=== PATIENT | female | born 2005 | race Caucasian/White ===

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

== ENCOUNTER 2025-01-06 12:42 | Outpatient (CLI) | payer OTHER, SELFPAY ==
--- NOTE | 2025-01-06 13:00 | CRLHL7_ITS ---
For Patients: As a result of the Century Cures Act, medical imaging exams and procedure reports are released immediately into your electronic medical record. You may view this report before your referring provider. If you have questions, please contact your health care provider. INDICATION: Velamentous cord insertion TECHNIQUE: Ultrasound OB pelvis transabdominal. Real-time noguera-scale imaging of the fetus was performed with color Doppler and spectral Doppler analysis of the umbilical artery without stress testing. COMPARISON: 12/30/2024 FINDINGS: Sonographic imaging demonstrates a single living intrauterine gestation. Fetus demonstrates a regular cardiac rate of 134 beats per minute. Fetus has a cephalic orientation. The placenta lies anterior. Amniotic fluid volume appears normal with a MVP of 2.5 cm. breathing movements, motion, and tone were all observed. IMPRESSION: Single viable intrauterine with a biophysical profile 06/19. Dictated by Tex Tomas MD @ 01/06/2025 3:55:13 PM (Electronically Signed)
== END 2025-01-06 12:43 | disposition home or self-care (01) ==
LOC: US 12:43
PROVIDERS: Visit Provider Obstetrics & Gynecology
DX: O43.123 Velamentous insertion of umbilical cord, third trimester (principal); Z3A.38 38 weeks gestation of pregnancy
CPT/HCPCS: 76819

== ENCOUNTER 2025-01-08 08:30 | Outpatient (RCR) | payer OTHER, SELFPAY ==
--- NOTE | 2024-12-16 13:25 | URNOTE ---
Request received for authorization for Rocael ([id number]). Prior authorization is not required per [facility] . Martha Mauricio Ref#[id number].
[2024-12-18 08:06] VITALS: BP 106/69; PULSE 102; RESP 17; TEMP 36.7; O2SAT 98
[2024-12-18] MEDS: IRON SUCROSE COMPLEX 200 MG in 0.9 % SODIUM CHLORIDE 100 ml 100 ML 330 MG IVPB (08:31)
[2024-12-18] MEDS: 0.9 % SODIUM CHLORIDE 500 ML IV (08:54)
[2024-12-18 08:55] VITALS: BP 103/76; PULSE 100; RESP 16; TEMP 36.9; O2SAT 98
[2024-12-18] MEDS: SODIUM CHLORIDE 0.9 % (FLUSH) 10 ML SYRINGE IVF (08:55)
[2024-12-18 09:26] VITALS: BP 103/67; PULSE 101; RESP 16; TEMP 36.9; O2SAT 98
--- NOTE | 2024-12-31 15:55 | ONC.NURNOTE ---
Diagnosis: MALKA in
[2025-01-02 09:14] VITALS: BP 107/69; PULSE 100; RESP 16; TEMP 36.9; O2SAT 98
[2025-01-02] MEDS: SODIUM CHLORIDE 0.9 % (FLUSH) 10 ML SYRINGE IVF (09:53)
[2025-01-02] MEDS: IRON SUCROSE COMPLEX 200 MG in 0.9 % SODIUM CHLORIDE 100 ml 100 ML 440 MG IVPB (09:54)
[2025-01-02 10:50] VITALS: BP 103/65; PULSE 97; RESP 16; O2SAT 97
[2025-01-06 14:10] VITALS: BP 107/70; PULSE 117; RESP 16; TEMP 36.7; O2SAT 97
[2025-01-06 14:15] VITALS: PULSE 102
[2025-01-06] MEDS: IRON SUCROSE COMPLEX 200 MG in 0.9 % SODIUM CHLORIDE 100 ml 100 ML 440 MG IVPB (14:31)
[2025-01-06] MEDS: SODIUM CHLORIDE 0.9 % (FLUSH) 10 ML SYRINGE IVF (14:31)
[2025-01-06 14:51] VITALS: BP 104/67; PULSE 105; RESP 16; TEMP 37.1; O2SAT 98
[2025-01-06 15:20] VITALS: BP 121/69; PULSE 101; RESP 16; TEMP 36.8; O2SAT 100
[2025-01-08 08:36] VITALS: BP 108/69; PULSE 107; RESP 16; TEMP 36.1; O2SAT 98
[2025-01-08] MEDS: SODIUM CHLORIDE 0.9 % (FLUSH) 10 ML SYRINGE IVF (08:54)
[2025-01-08] MEDS: IRON SUCROSE COMPLEX 200 MG in 0.9 % SODIUM CHLORIDE 100 ml 100 ML 440 MG IVPB (08:59)
[2025-01-08 09:18] VITALS: BP 111/73; PULSE 111; O2SAT 98
[2025-01-08 09:51] VITALS: BP 102/65; PULSE 110; RESP 16; TEMP 36.8; O2SAT 97
== END 2025-06-16 23:59 | disposition home or self-care (01) ==
LOC: CCIC 08:30
PROVIDERS: PCP Obstetrics & Gynecology; Visit Provider Clinical Nurse Specialist
DX: O99.013 Anemia complicating pregnancy, third trimester (principal); D50.9 Iron deficiency anemia, unspecified
CPT/HCPCS: 96365; J1756; J7030; J7050

== ENCOUNTER 2025-01-15 07:06 | Inpatient (IN) | payer OTHER, SELFPAY ==
[2025-01-15] VITALS (22 sets, daily range): BP systolic 94–150; BP diastolic 58–94; PULSE 79–115; RESP 16; TEMP 36.3–37.2; O2SAT 95–100; BMI 25.6
[2025-01-15] MEDS: LACTATED RINGERS 1000 ML 1,000 ML IV (08:07)
[2025-01-15 08:10] LABS: Basophils Percent Auto 0.3 % (0.0-3.0); Eosinophils Percent Auto 2.9 % (0.0-7.0); Hematocrit 37.1 % (33.0-51.0); Immature Granulocytes Pct Auto 2.7 %; Lymphocytes Percent Auto 17.2 % (20-44); Mean Corpuscular HGB Conc 32 gm/dL (32-36); Mean Corpuscular Hemoglobin 28 pg (26-34); Mean Corpuscular Volume 87 fL (80-100); Monocytes Percent Auto 6.5 % (0.0-11.0); Neutrophils Percent Auto 70.4 % (42.0-72.0); Platelet Count* 300 K/uL (140-440); RDW Coefficient of Variation % 16.9 % (11.5-15.5); Red Blood Count 4.25 m/uL (4.00-5.20); White Blood Count* 11.46 K/uL (4.50-11.00)
[2025-01-15 08:21] LABS: Slide Review Reflex No
--- NOTE | 2025-01-15 08:45 | W.PM.LDBA ---
Subjective History of Present Illness Date Seen: 01/15/25 Narrative: Patient is being admitted to Labor and Delivery for repeat . She is a 19 year old at 39 weeks, 2 days gestation. Her full history and physical was dictated by Dr. Dover on 12/30/24. Please see this for details. Specific Issues/Plans G 4 P 1021 Partner: Adin, 17 yo Son: Faizan Baby: Titus H&P 12/30/24 Dr. Dover #Velamentous cord insertion Serial US for growth beginning 28 weeks Weekly testing beginning 36 weeks; see summarized results below # History of primary elective Desires repeat Scheduled for 01/15 as above Keloid from last incision. Will try paper tape over incision and will again perform closure of SQ fat. #Closely spaced pregnancies. 06/12/23. #Teen Offered social work visit; declines #History of depression. History of suicide attempt by drug overdose 02/2020. History of cutting on forearms and legs. Currently stable without medication. # Anemia, with Hb 10.9 on 10/28. Ferrous sulfate 325 mg QOD Repeat Hb at 34 weeks: 10.5. Begin iron infusions. 32 week PHQ = 1, ALFONSO = 2 Imagin09/02/24: cephalic, anterior placenta without previa, 3 vessel cord, velamentous cord insertion, SDP 4.9 cm, EFW 60%, AC 71%, normal visualized anatomy 10/28/24: cephalic, SDP 5.3, EFW 80.1%, AC 95.7% 11/26/24: cephalic, SDP 5.4, EFW 82%, AC>97%, all other growth parameters within normal ranges. 12/24/24: Cephalic, SDP 3.7 cm, EFW 66%, BPD 52%, HC 11%, AC >97%, FL <3%. Covid: Not vaccinated. Recommended, considering Flu: Recommended, considering Tdap: 11/26/24 RSV: 11/26/24 OB - Problem Based A/P Additional Plan (1) Previous delivery affecting : Status: Acute Delivery/Labor/Induction Plan Plan: Section OB Exam Physical Exam Vital signs: Pulse BP Pulse Ox 114 H 110/68 98 01/15/25 07:37 01/15/25 07:37 01/15/25 07:35 Narrative: Physical exam: General: No acute distress Psych: Alert and oriented x3, full affect HEENT: Normocephalic, atraumatic Heart: Regular rate and rhythm, no murmur rub or gallop Lungs: Clear to auscultation bilaterally
[2025-01-15] MEDS: CEFAZOLIN 2 GM INJ IVP (09:04)
[2025-01-15] MEDS: KETOROLAC 30 MG/ML inj IVP ×3 (10:06→21:47)
--- NOTE | 2025-01-15 10:22 | P.OBPRC_ITS ---
Procedure Date of procedure: 01/15/25 Pre-op diagnosis: Previous section, desires repeat 39 weeks, 2 days gestation Post-op diagnosis: same Procedure Done: Global Will [facility] bill your pro fee for this procedure?: Yes Blood Loss Measurement Type: QBL (280) Bakri Used: No IV fluids (mL): 1,700 Urine Output (mL): 150 Surgeon: Betty Dover MD Anesthesia Type: Spinal and TAP Block Findings: 1. Male infant, cephalic OA presentation, Apgars of 9 and 9, weight 3430 g. 2. Very thin lower uterine segment, with amniotic fluid and vernix clearly visible through this very thin segment. Otherwise normal appearance of uterus, bilateral tubes and ovaries. Procedure Name: Repeat low-transverse section Procedure Description: PROCEDURE IN DETAIL: Patient was taken to the operating room with IV running. She received cefazolin in preoperative prophylaxis. Spinal anesthesia had previously been administered. Mae catheter was inserted. She was prepped and draped in the usual sterile fashion. Anesthesia was tested and found to be adequate. A thin elliptical incision was made encompassing her previous Pfannenstiel incision, which exhibited a keloid. This was grasped with Allis and was sharply excised with scalpel. The incision was carried through to the underlying layer of fascia with the scalpel. The subcutaneous fat was dissected off the underlying fascia with Bovie. The fascia was nicked in the midline with a scalpel, and this incision was extended laterally with scissors. The fascia was dissected off the underlying rectus sharply. The rectus muscles were in the midline. Peritoneum was identified and entered bluntly. Bovie was used to widen this opening laterally. The catheter was noted to have been expelled and was replaced. Channing O retractor was inserted and tightened down, providing excellent visualization of the lower uterine segment. The bladder reflection was found to be well below the planned site for hysterotomy. The lower uterine segment was noted to be very thin, as described above. Low-transverse uterine incision was made with a scalpel. Incision was widened bluntly. The infant's head was grasped through the hysterotomy and delivered with the help of fundal pressure. The remainder of the body delivered without incident. Cord was clamped and cut after 30 seconds. Infant was handed off to attending nurses. The placenta was delivered with gentle traction on the cord. The uterus was cleaned of all clots and debris with the dry lap pad. The hysterotomy was reapproximated with 0 Vicryl in a running, locked fashion. Second layer of the same suture was used in imbricating fashion to obtain hemostasis. The uterine serosa inferior to the hysterotomy was dissected down slightly to assure that bladder was out of harm's way, limited to the leftward aspect of the incision. The adnexa were examined and noted to be normal in appearance. The cul-de-sac and gutters were cleansed with dampened laparotomy sponge, removing any further clots and debris. The Channing O retractor was removed. The hysterotomy was reexamined and found to be hemostatic. The peritoneum was reapproximated with 2 0 Vicryl in a running fashion. The rectus muscles were examined and found to be hemostatic. The fascia was reapproximated with 0 Vicryl in a running fashion. Subcutaneous fat was irrigated and Bovie used on oozing vessels. The subcutaneous fat was reapproximated with 2 0 plain gut suture in an interrupted fashion. The skin was closed with a subcuticular stitch of 4-0 Monocryl. Steri strips and a dressing were applied above this. Patient tolerated procedure well was taken to recovery area in stable condition. Complications: None Pathology: none sent Surgery Debrief Performed: Yes Condition: stable Disposition: floor total score - 1 minute: 9 total score - 5 minute: 9
--- NOTE | 2025-01-15 10:32 | P.ANES_ITS ---
Anesthesia Charges Start Date/Time Anesthesia Start Date: 01/15/25 Anesthesia Start Time: 08:54 Stop Date/Time Anesthesia Stop Date: 01/15/25 Anesthesia Stop Time: 10:29 Coding CPT Codes CPT Codes: ANESTH CS DELIVERY - 75738 ([id number]) P2 - PATIENT W/MILD SYST DISEASE, QK - PARAPROFESSIONAL AIDE 2-4 CNCRNT ANES PROC, QX - GRANITE POLISHER MACHINE SVC W/ MD MED DIRECTION
--- NOTE | 2025-01-15 10:32 | W.ANESCHARGE ---
Anesthesia Charges Start Date/Time Anesthesia Start Date: 01/15/25 Anesthesia Start Time: 08:54 Stop Date/Time Anesthesia Stop Date: 01/15/25 Anesthesia Stop Time: 10:29 Coding CPT Codes CPT Codes: ANESTH CS DELIVERY - 33462 ([id number]) P2 - PATIENT W/MILD SYST DISEASE, QK - ADMEASURER 2-4 CNCRNT ANES PROC, QX - SQUEEGEE OPERATOR SVC W/ MD MED DIRECTION
--- NOTE | 2025-01-15 10:47 | P.ANES_ITS ---
Anesthesia Charges Start Date/Time Anesthesia Start Date: 01/15/25 Anesthesia Start Time: 08:54 Stop Date/Time Anesthesia Stop Date: 01/15/25 Anesthesia Stop Time: 10:29 Coding CPT Codes CPT Codes: ANESTH CS DELIVERY - 95192 ([id number]) QK - RN PSYCH 2-4 CNCRNT ANES PROC, QX - HARDWOOD FLOOR SANDER SVC W/ MD MED DIRECTION, P2 - PATIENT W/MILD SYST DISEASE
--- NOTE | 2025-01-15 10:47 | W.ANESCHARGE ---
Anesthesia Charges Start Date/Time Anesthesia Start Date: 01/15/25 Anesthesia Start Time: 08:54 Stop Date/Time Anesthesia Stop Date: 01/15/25 Anesthesia Stop Time: 10:29 Coding CPT Codes CPT Codes: ANESTH CS DELIVERY - 09364 ([id number]) QK - GLAZIER ARTIST 2-4 CNCRNT ANES PROC, QX - MANAGER FACILITY SVC W/ MD MED DIRECTION, P2 - PATIENT W/MILD SYST DISEASE
--- NOTE | 2025-01-15 10:48 | P.NB_ITS ---
Nerve Block Nerve Block Time Seen by Provider: 10:18 Date Seen: 01/15/25 Type of block requested by surgeon for post-operative analgesia: TAP Side: bilateral Time out performed: Yes Verification of patient name: Yes Verification of date of : Yes Site marking: not applicable Name of person performing procedure: patrice Continuous monitoring Was continuous monitoring of O2 sat, B/P, school lunch monitor, recorded every 15 minutes?: Yes Procedure Checklist: sterile prep, needles and gloves Ultrasound guided. Images saved: Yes Medications given in 5ml increments after negative aspiration: Marcaine %: 0.25 mL: 30 Needle gauge: 20 Patient tolerated procedure well: Yes Block Charges Block Charge (with Pro Fee): TAP Bilateral Use of Ultrasound Machine for Block: Yes- US Guidance/pain block
[2025-01-15] MEDS: LACTATED RINGERS 1000 ML 1,000 ML 75 ML IV (20:31)
[2025-01-16] MEDS: KETOROLAC 30 MG/ML inj IVP ×2 (04:15→09:49)
[2025-01-16 04:19] VITALS: BP 106/68; PULSE 87; RESP 16; TEMP 37.3; O2SAT 97
[2025-01-16] MEDS: OXYCODONE 5 MG TABLET PO ×6 (04:41→22:23)
[2025-01-16 06:55] LABS: Hemoglobin* 10.2 gm/dL (12.0-16.0)
--- NOTE | 2025-01-16 07:57 | PM.OBPNVD1 ---
OB - PN:Subj Subjective Date Seen: 01/16/25 Patient comments OB post-: no complaints, pain well controlled, tolerating diet and flatus present [place] status: and doing well [place] feeding status: exclusively Narrative: Roopa feels well.? Her pain is well controlled with current medications.? She has no new complaints.? Urinary output is adequate and she is voiding without difficulty.? Has a good appetite, is tolerating a general diet, is passing flatus, and has not had a bowel movement.? Has scant amount of rubra lochia.? She is ambulating well.?She is and feels that it is going well so far. Hgb 10.2 today. Discussed good dietary intake of iron rich food. denies feeling dizzy or lightheaded. We briefly discussed the thin EVE noted in the operating noted and encouraged her to discuss this further with an OB provider at a future visit. Encouraged her to consider very effective contraception such as IUD or Nexplanon. She states that she does not desire future pregnancies. OB - PN: Obj Exam Physical Exam: Vital signs: Temp Pulse Resp BP Pulse Ox O2 Del Method 99.1 F 87 16 106/68 97 Room Air 01/16/25 04:19 01/16/25 04:19 01/16/25 04:19 01/16/25 04:19 01/16/25 04:19 01/16/25 04:19 Narrative: GENERAL APPEARANCE:? normal affect, alert, no distress? MOOD:? appropriate? CHEST:? clear to auscultation and percussion? HEART:? regular rate and rhythm? ABDOMEN:? soft, non-tender the uterine fundus is U/2 and is appropriate for the stage of recovery. Incision dressing is clear, dry and intact.?? EXTREMITIES:? normal and no edema? OB - PN: Obj Data Labs Labs: Laboratory Results - last 24 hr 01/15/25 01/16/25 07:59 06:29 WBC 11.46 H RBC 4.25 Hgb 12.0 10.2 L Hct 37.1 MCV 87 MCH 28 MCHC 32 RDW Coeff of Kieran 16.9 H Plt Count 300 Neut % (Auto) 70.4 Lymph % (Auto) 17.2 L [place] % (Auto) 6.5 Eos % (Auto) 2.9 Baso % (Auto) 0.3 Neut # (Auto) 8.10 H Lymph # (Auto) 2.00 [place] # (Auto) 0.70 Eos # (Auto) 0.30 Baso # (Auto) 0.00 Abs Immat Gran (auto) 0.30 Imm/Tot Granulo (auto) 2.7 Blood Type O Positive Antibody Screen NEGATIVE OB - PN: A/P Delivery Assessment and Plan (1) Previous delivery affecting : Status: Acute (2) care following delivery: Status: Acute (3) Teenage parent: Status: Acute Plan day: 1 Plan: routine care Comments: Anticipate discharge home tomorrow or the following day per patient preference.
[2025-01-16 09:40] VITALS: BP 101/65; PULSE 90; RESP 16; TEMP 36.7; O2SAT 96
[2025-01-16] MEDS: IBUPROFEN 600 MG TABLET PO (15:13)
[2025-01-16 15:27] VITALS: BP 99/66; PULSE 60; RESP 16; TEMP 36.6; O2SAT 99
[2025-01-16] MEDS: ACETAMINOPHEN 500 MG TABLET 1000 MG PO (22:20)
[2025-01-17 00:47] LABS: Rapid Plasma Reagin (RPR) Non Reactive (Non Reactive)
[2025-01-17] MEDS: IBUPROFEN 600 MG TABLET PO ×2 (00:55→07:14)
[2025-01-17 00:59] VITALS: BP 99/65; PULSE 81; RESP 16; TEMP 36.8; O2SAT 94
[2025-01-17] MEDS: ACETAMINOPHEN 500 MG TABLET 1000 MG PO (04:34)
[2025-01-17] MEDS: OXYCODONE 5 MG TABLET PO (04:35)
[2025-01-17] MEDS: DOCUSATE SODIUM 100 MG CAPSULE PO (09:00)
[2025-01-17 09:18] VITALS: BP 101/67; PULSE 75; RESP 16; TEMP 37.1; O2SAT 94
--- NOTE | 2025-01-17 09:59 | PM.OBDSVD1 ---
DS: Providers Provider Date Seen: 01/17/25 Date of admission: 01/15/25 07:06 Primary care physician: Not a Local Provider Admitting Clinician: Betty Dover MD Attending Physician on discharge: Betty Dover MD Exam Narrative: Exam Narrative: General: Alert and oriented in no acute distress Psych: Appropriate Abdomen: Patient declined lying down in bed, where exam was completed while seated upright. Upper abdomen is soft and nondistended. She has some tenderness to palpation, consistent with her postoperative state. No rebound or guarding. Incision is well approximated without erythema or drainage. Const: Vital Signs, click to edit/add: Vital Signs - 24 hr 01/16/25 15:27 01/17/25 00:59 01/17/25 09:18 Temperature 97.8 F 98.3 F 98.7 F Pulse Rate [Pulse Oximeter] 60 81 75 Respiratory Rate 16 16 16 Blood Pressure [Le ft Arm] 99/66 99/65 101/67 Pulse Oximetry 99 94 94 Oxygen Delivery Me thod Room Air Room Air Room Air OB - DS: Summary Hospital Course Hospital Course: The patient is a 19 year old G 4 P 2 at 39 weeks gestation that was admitted to the [facility] on 01/15/25 for repeat delivery. was complicated by velamentous cord insertion, closely spaced pregnancies, teen , history of depression and anemia. She had an uncomplicated delivery. She delivered a viable . She is breast feeding. the patient has done well. Patient notes a desire to discharge to home today. She notes her past operative pain is well controlled. Lochia is described as small volume. She is tolerating p.o. solids and liquids without nausea or vomiting. Void spontaneously, passing gas. Ambulates without difficulty, dizziness or lightheadedness. No chest pain, dyspnea, fevers or chills. She is breast-feeding successfully. Peripartum Data Procedures: Procedures Operation Date: 01/15/25 08:45 Actual Procedure Side Surgeon p Repeat Section Betty Dover MD Gender: Male Time Spent with Patient Time attestation: Total time spent providing and/or coordinating discharge services: Discharge Plan Discharge Disposition: Home, Self-Care Date of Admission: 01/15/25 07:06 Primary Care Provider: Provider,Not a Local Condition: Stable Anticipated Discharge Date/Time: 01/17/25 10:02 Discharge Medications: New oxycodone 5 mg Tablet 5 mg PO Q4H PRN (Reason: Pain) Qty: 15 0RF Continued omeprazole 20 mg capsule,delayed release(DR/EC) 20 mg PO QDAY 70 Days Qty: 70 0RF DHA 200 mg capsule 200 mg PO DAILY Discharge Orders: Discharge Order (Routine); Ordered 01/17/25 Ordered By: Nancy Rodrigues Additional Instructions: Discharge instructions were reviewed with the patient including signs and symptoms of infection and home going medications Lifting Restrictions: 20 pounds for 6 weeks No not submerge incision under water X 2 weeks? Nothing vaginally for 6 weeks: no tampons or intercourse Do not drive while taking narcotic pain medication(s) Off Work or School for 8 weeks Pain: - Ibuprofen 600 mg every 6 hours as needed - Tylenol a 1000 mg every 6 hours as needed - Oxycodone 5 mg every 4 hours as needed for pain (maximize ibuprofen/tylenol first) Symptoms to report to doctor: Bleeding that saturates more than one pad per hour Passing clots larger than the size of a golf ball Pain not relieved by prescribed medication Fever above 100.4 degrees Fahrenheit A foul vaginal odor Difficulty in emotions, mood, and functions Thoughts of hurting yourself and/or Painful, reddened area in your breast Any drainage, redness, or tenderness in your IV/epidural site Severe headache that doesn't improve after taking medications Changes in vision, including temporary loss of vision, blurred vision, and/or light sensitivity Upper abdominal pain (usually under ribs on the right side) Decrease in urination or painful, frequent urinating Chest pain Shortness of breath Tenderness or pain with redness and/swelling in the calf(s) of your leg Optional 2-week visit: incision check, discuss feeding concerns, review control options and screen for anxiety/depression. 6-week visit for an annual exam. consultation services are available to all mothers and babies for the first year after delivery.? To make an appointment, please call [phone]. Follow Up Appointments: Provider,Not a Local [Primary Care Provider] - Forms: Fliqq Info Instructions
== END 2025-01-17 12:45 | disposition home or self-care (01) | DRG 540 ==
PROVIDERS: Admitting Provider Obstetrics & Gynecology; Visit Provider Obstetrics & Gynecology
PROC: 10D00Z1 Extraction of Products of Conception, Low, Open Approach (ICD-10-PCS; CPT 59514; principal; 2025-01-15 08:45)
DX: O34.211 Maternal care for low transverse scar from previous cesarean delivery (principal); O99.344 Other mental disorders complicating childbirth; F32.A Depression, unspecified; O99.02 Anemia complicating childbirth; D64.9 Anemia, unspecified; Z3A.39 39 weeks gestation of pregnancy; Z37.0 Single live birth; G89.18 Other acute postprocedural pain; O43.123 Velamentous insertion of umbilical cord, third trimester
CPT/HCPCS: 01961; 36415; 64488; 76942; 85018; 85025; 86592; 86850; 86900; 86901; A4314; A9270; J0665; J0666; J0690; J1100; J1885; J2274; J2405; J2590; J2765; J7120

== ENCOUNTER 2025-03-28 14:00 | Emergency (ER) | payer OTHER, SELFPAY ==
[2025-03-28 14:14] VITALS: BP 114/75; PULSE 110; RESP 16; TEMP 36.6; O2SAT 98; BMI 21.0
--- NOTE | 2025-03-28 14:26 | CRLHL7_ITS ---
For Patients: As a result of the Century Cures Act, medical imaging exams and procedure reports are released immediately into your electronic medical record. You may view this report before your referring provider. If you have questions, please contact your health care provider. INDICATION: Continued bleeding after delivery of her child in January. COMPARISON: 16 July 2023 ultrasound. FINDINGS: Transabdominal imaging. Anteverted uterus 7 x 4 x 5 cm. No obvious contour deforming mass. No fluid in the peritoneal cavity. Transvaginal scanning performed for better evaluation of endometrium and adnexal. Trilaminar endometrial thickness estimated at 4 mm with well-defined junctional zone. No mass, fluid or hemorrhage in the endometrial cavity. Large dominant right ovarian cyst 3.5 x 2.3 x 2.8 cm. Normal color Doppler blood flow in the surrounding parenchyma and several other small subcentimeter cysts/follicles. Total ovarian size roughly 5 x 3 x 3 cm. Left ovary roughly 3 x 1 x 1.5 cm with subcentimeter rare follicles. Normal color Doppler blood flow. IMPRESSION: Thin endometrium could be some minor atrophy. No hemorrhage. No mass. Benign ovaries. Dictated by Kenneth Scott MD @ 03/28/2025 4:31:00 PM (Electronically Signed)
[2025-03-28 14:48] LABS: Basophils Absolute Auto 0.04 K/uL (0.00-0.30); Basophils Percent Auto 0.7 % (0.0-3.0); Eosinophils Percent Auto 12.3 % (0.0-7.0); Hematocrit 41.6 % (33.0-51.0); Hemoglobin* 13.6 gm/dL (12.0-16.0); Immature Granulocytes Abs Auto 0.06 K/uL (0.00-0.30); Immature Granulocytes Pct Auto 1.1 %; Lymphocytes Absolute Auto 1.83 K/uL (0.90-2.90); Lymphocytes Percent Auto 33.6 % (20-44); Mean Corpuscular HGB Conc 33 gm/dL (32-36); Mean Corpuscular Hemoglobin 28 pg (26-34); Mean Corpuscular Volume 85 fL (80-100); Monocytes Percent Auto 6.3 % (0.0-11.0); Platelet Count* 362 K/uL (140-440); RDW Coefficient of Variation % 15.6 % (11.5-15.5); Red Blood Count 4.88 m/uL (4.00-5.20); White Blood Count* 5.44 K/uL (4.50-11.00)
[2025-03-28 14:49] LABS: Slide Review Reflex No
[2025-03-28 14:51] LABS: Chloride* 104 mmol/L (96-114); Potassium* 4.2 mmol/L (3.6-5.1); Sodium* 142 mmol/L (135-149)
[2025-03-28 14:53] LABS: Appearance Urine Clear (Clear); Bilirubin Urine Negative (Negative); Blood Urine 3+ (Negative); Color Urine Yellow (Yellow); Glucose Urine Negative (Negative); Ketones Urine Negative (Negative); Leukocyte Esterase Urine Negative (Negative); Nitrite Urine Negative (Negative); Protein Urine 1+ (Negative); Specific Gravity Urine >= 1.030 (1.000-1.030); Urobilinogen Urine 0.2 (0.2-1.0)
[2025-03-28 14:54] LABS: Blood Urea Nitrogen* 14 mg/dL (5-24); Creatinine* 0.6 mg/dL (0.5-1.5); Est. Creatinine Clearance* 118.29; Estimated Glomerular Filt Rate 132 ml/min
[2025-03-28 14:55] LABS: Anion Gap 9 mEq/L (7-15); Calcium* 9.5 mg/dL (8.4-10.6); Carbon Dioxide* 29 mmol/L (20-32); Glucose* 78 mg/dL (60-115)
[2025-03-28 15:11] LABS: Mucus Urine Many; RBC Urine >100 (0-2)
[2025-03-28 15:16] LABS: HCG Qualitative Serum* Negative (Negative)
--- NOTE | 2025-03-28 15:35 | ED.FEMALEGU ---
HPI - Female Genitourinary General Chief complaint: Vaginal Bleeding Stated complaint: post bleeding Time Seen by Provider: 03/28/25 14:01 History of Present Illness HPI Narrative: Patient is a 20-year-old woman who approximately 9 weeks ago had a . [place] was uncomplicated. Patient has had 4 pregnancies and this is her 2nd . She states she has been having vaginal bleeding ever since which is been several pads per day. She has some is clots occasionally but no significant pain. She is . She has had no fevers no chills no night sweats no abdominal pain no cough no shortness of breath and otherwise been feeling fine. Patient takes no home medications other than vitamins. Related Data Home Medications ?Medication ?Instructions ?Recorded ?Confirmed docosahexaenoic acid 200 mg 200 mg PO DAILY 06/10/24 03/28/25 capsule ( DHA) Previous Rx's ?Medication ?Instructions ?Recorded medroxyprogesterone 10 mg tablet 10 mg PO TID #30 tabs 03/28/25 (Provera) Allergies Allergy/AdvReac Type Severity Reaction Status Date / Time clarithromycin Allergy Severe Verified 03/28/25 14:12 Penicillins Allergy Mild Rash Verified 03/28/25 14:12 Review of Systems Status of ROS: Reports: 10 or more systems reviewed and unremarkable except as noted in History and below [facility] Medical History Velamentous insertion of umbilical cord ?O43.129 - Velamentous insertion of umbilical cord, unspecified trimester (ICD-10) 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 Adin works at [employer]. Lives in [place] with father, boyfriend Adin, and their son. Adin is FOB. No smoking, ETOH, or drug use. What is your current living situation?: I presently have a place to live Problems where you live: no known problems In the past 12 months, utilities in danger of being shut off: no In past 12 months, lack of transportation kept you from medical appts, meetings, work, or getting things needed for daily living: no In the past 12 mos, have been you worried that your food would run out before you had money to buy more?: never true In the past 12 mos, the food you bought just didn't last and you didn't have money to buy more?: never true Smoking Status: Never smoker Do you use any of these nicotine containing products: None Second hand tobacco smoke exposure: No How often do you have a drink containing alcohol: never AUDIT-C Alcohol total score: 0 Non-prescribed substance use: denies use How often does anyone, including family, friends and others, physically hurt you: never How often does anyone, including family, friends and others, insult or talk down to you: never How often does anyone, including family, friends and others, threaten you with harm: never How often does anyone, including family, friends and others, scream or curse at you: never service: No Exam Narrative: Exam Narrative: EXAM GENERAL: Patient appears comfortable and well. EYES: No scleral icterus. LYMPH: No supraclavicular or cervical lymphadenopathy. SKIN: Visible skin seen during exam normal or with benign process only. EXT: No dependent lower extremity pedal edema. HEART: Regular rate and rhythm with no murmurs, rubs, or gallops. LUNGS: Clear to auscultation bilaterally with no crackles or wheezes. ABD: Soft, non tender, non distended. PSYCH: Good eye contact, speech is not pressured. Const: Vital Signs, click to edit/add: Vital Signs - 24 hr 03/28/25 14:14 Temperature 97.8 F Pulse Rate [Pulse Oximeter] 110 H Respiratory Rate 16 Blood Pressure [Ri ght Upper Arm] 114/75 Pulse Oximetry 98 Oxygen Delivery Me thod Room Air Course Course ED Course: Patient seen and examined. Ultrasound of the pelvis shows a 3.7 mm vaginal stripe no other intrauterine abnormalities. Labs are reassuring. I did visit with on-call OBGYN who recommended Provera with 10 mg 3 times a day for the next several days until bleeding stops with outpatient follow-up. Vital Signs Vital signs: Initial Vital Signs Temperature 97.8 F 03/28/25 14:14 Temperature Source Temporal Artery Scan 03/28/25 14:14 Pulse Rate 110 H 03/28/25 14:14 Respiratory Rate 16 03/28/25 14:14 Blood Pressure 114/75 03/28/25 14:14 Blood Pressure Mean 88 03/28/25 14:14 Pulse Oximetry 98 03/28/25 14:14 Oxygen Delivery Method Room Air 03/28/25 14:14 Vital Signs Temperature 97.8 F 03/28/25 14:14 Pulse Rate 110 H 03/28/25 14:14 Respiratory Rate 16 03/28/25 14:14 Blood Pressure 114/75 03/28/25 14:14 Pulse Oximetry 98 03/28/25 14:14 Oxygen Delivery Method Room Air 03/28/25 14:14 Temperature 97.8 F 03/28/25 14:14 Pulse Rate 110 H 03/28/25 14:14 Respiratory Rate 16 03/28/25 14:14 Blood Pressure 114/75 03/28/25 14:14 Pulse Oximetry 98 03/28/25 14:14 Oxygen Delivery Method Room Air 03/28/25 14:14 MDM - Female Genitourinary Lab Data Labs: Lab Results 03/28/25 03/28/25 Range/Units 14:33 14:45 WBC 5.44 (4.50-11.00) K/uL RBC 4.88 (4.00-5.20) m/uL Hgb 13.6 (12.0-16.0) gm/dL Hct 41.6 (33.0-51.0) % MCV 85 (80-100) fL MCH 28 (26-34) pg MCHC 33 (32-36) gm/dL RDW Coeff of Kieran 15.6 H (11.5-15.5) % Plt Count 362 (140-440) K/uL Neut % (Auto) 46.0 (42.0-72.0) % Lymph % (Auto) 33.6 (20-44) % Hendricks % (Auto) 6.3 (0.0-11.0) % Eos % (Auto) 12.3 H (0.0-7.0) % Baso % (Auto) 0.7 (0.0-3.0) % Neut # (Auto) 2.50 (1.7-7.0) K/uL Lymph # (Auto) 1.83 (0.90-2.90) K/uL Hendricks # (Auto) 0.30 (0.00-0.90) K/UL Eos # (Auto) 0.70 H (0.00-0.50) K/uL Baso # (Auto) 0.04 (0.00-0.30) K/uL Abs Immat Gran (auto) 0.06 (0.00-0.30) K/uL Imm/Tot Granulo (auto) 1.1 % Sodium 142 (135-149) mmol/L Potassium 4.2 (3.6-5.1) mmol/L Chloride 104 (96-114) mmol/L Carbon Dioxide 29 (20-32) mmol/L Anion Gap 9 (7-15) mEq/L BUN 14 (5-24) mg/dL Creatinine 0.6 (0.5-1.5) mg/dL Estimated Creat Clear 118.29 Estimated GFR 132 ml/min Glucose 78 (60-115) mg/dL Calcium 9.5 (8.4-10.6) mg/dL HCG, Qual Negative (Negative) Urine Color Yellow (Yellow) Urine Appearance Clear (Clear) Urine pH 6.0 (5.0-8.5) Ur Specific [place] >= 1.030 (1.000-1.030) Urine Protein 1+ A (Negative) Urine Glucose (UA) Negative (Negative) Urine Ketones Negative (Negative) Urine Blood 3+ A (Negative) Urine Nitrite Negative (Negative) Urine Bilirubin Negative (Negative) Urine Urobilinogen 0.2 (0.2-1.0) Ur Leukocyte Esterase Negative (Negative) Urine RBC >100 A (0-2) Urine WBC 5-10 A (0-5) Ur Squamous Epith Cells None (None-Few) Urine Bacteria None (None) Urine Mucus Many A (None) Discharge Plan Discharge Clinical Impression: bleeding Patient Disposition: Home, Self-Care Condition: Stable Instructions: Bleeding (ED) Additional Instructions: Provera as directed Follow-up with visual effects artist this coming week. Activity Level: No Restrictions Discharge Diet: Regular Prescriptions: New medroxyprogesterone [Provera] 10 mg tablet 10 mg PO TID Qty: 30 2RF No Action DHA 200 mg capsule 200 mg PO DAILY Follow Up/Referrals: Provider,Not a Local [Primary Care Provider] - Stand Alone Forms: MyHealth Info Instructions
--- OUTSIDE RECORDS SUMMARY | 2025-03-29 17:31 | XMS_ITS | Encounter Summary ---
Author Organization [facility] er Address [address] [place] [address] Care Team Providers Care Humanities Coordinator Name Role Phone Liliya Huang APRN Primary Care Provider Encounter Details Date Type Department Care Team (Late st Contact Info) Description 02/11/2020 Telephone [place] [address] [place] [address] Stacia Zabala MD Social History Tobacco Use Types Packs/Day Years Used Date Smoking Tobacco: Never Smokeless Tobacco: Never PHQ-2 Answer Date Recorded PHQ-2 Score 0 02/11/2020 Comments Unknown Sex and Gender Information Value Date Recorded Sex Assigned at Not on file Legal Sex Female 7:45 PM CDT Gender Identity Not on file Sexual Orientation Not on file COVID-19 Exposure Response Date Recorded In the last month, have you been in contact with someone who was confirmed or suspected to have Coronavirus / COVID-19? No / Unsure 02/11/2020 8:12 AM CDT documented as of this encounter Plan of Treatment Not on file documented as of this encounter Visit Diagnoses Not on filedocumented in this encounter Additional Health Concerns Infection Onset Date Last Indicated Resolved Time COVID-19 Rule Out 03/07/2022 03/07/2022 03/07/2022 11:36 AM CDT COVID-19 Confirmed 03/07/2022 03/07/2022 8:17 PM CDT documented as of this encounter Care Teams Humanities Coordinator Relationship Specialty Start Date End Date Liliya Huang APRN [address] [place] [id number] PCP - General 08/30/23 documented as of this encounter
--- OUTSIDE RECORDS SUMMARY | 2025-03-29 17:31 | XMS_ITS | Clinical Summary ---
Author Organization [facility] Address [address] [place] [id number] Care Team Providers Care Web Machine Tender Name Role Phone Elsewhere, Pcp Primary Care Provider Unavailabl e Source Comments Patient records contain information from all sites at [facility]. For routine questions regarding patient records, call [phone] during business hours, M-F 8:00 AM - 5:00 PM Central Time. Record requests for emergency care only can be directed to [phone] at any time.[facility] Allergies Active Allergy Reactions Criticality Noted Date Comments Clarithromycin Other (see comments) High Please Verify & complete Reaction & Severity zuñiga! Penicillins Rash Medium 08/31/2011 Medications * This document contains information received from the source organization and may not represent a complete record from that organization. albuterol (Ventolin HFA) 90 mcg/actuation inhaler Inhale 1 puff every 6 (six) hours as needed for wheezing. 1 Inhaler 1 Active acetaminophen (TYLENOL) 500 mg tablet Take by mouth as needed. 7 Active ondansetron ODT (ZOFRAN-ODT) 4 mg disintegrating tablet Take 1 tablet (4 mg total) by mouth every 6 (six) hours as needed for nausea. 12 tablet 1 Active 25/iron fum/folic/dha (-1 ORAL) Take 1 tablet by mouth daily. 2 Active fluconazole (DIFLUCAN) 150 mg tablet Take 150 mg by mouth as needed. Yeast infection 2 Active vitamin B-6 25 mg tablet Take 25 mg by mouth daily. 3 Active Active Problems Problem Noted Date Diagnosed Date COVID-19 Infection 10/20/[address] Unspecified Trimes ter 06/22/2023 Care And Lactating 06/22/2023 Discrepancy Uterine Size Date Pregnanc y 06/22/2023 Pain Wrist Right 06/08/2023 Overview (10/20/2023): Last Assessment & Plan: Wear right wrist brace when sleeping/napping Please follow up if any concerns/issues Coping Ineffective 06/27/2021 Fear Of Illness Unfounded 04/14/2021 Depressive Disorder 10/19/2018 Anxiety Generalized Disorder 09/11/2018 Depression Major One Episode Moderate 08/28/2018 Estimated Date of Delivery Comme nts Yes 01/20/2025 Resolved Problems Problem Noted Date Diagnosed Date Resolved Date Suicide Ideation 10/18/2018 10/19/2018 Immunizations Immunization Administration Dates Next Due 9vHPV 04/14/2021 DTaP (Infanrix, Tripedia) 07/11/2010,09/07/2009 DTaP / Hep B / IPV (Pediarix) 2005, 005,2005 Hib (HbOC) (discontinued) 2005,2005, 2005 Hib, Unspecified 09/07/2009 Influenza TIV (IM) 2005 Influenza, Seasonal, Injectable 2005 Influenza, Unspecified 2005 MCV4 (Menactra)(Discontinued) 07/06/2016 MMR 07/11/2010,09/07/2009 PCV7 (discontinued) 09/07/2009, 6,2005,2004 Polio, Unspecified 09/07/2009 Tdap 07/06/2016 JOCELYN 11/14/2010,07/11/2010 influenza LAIV (Nasal) (2 ye ars through 49 years) 08/16/2015,08/07/2013,07/10/2012,2010 influenza trivalent LAIV (Na edin) (2 years through 49 years) 07/10/2012,08/28/2011 influenza vaccine quad (FLUZONE/FLUARIX) (6 months and older)(PF) 08/16/2015,08/07/2013 Family History Medical History Relation Name Comments Osteogenesis imperfecta Brother Osteogenesis imperfecta Mother Relation Name Status Comments Brother Mother Social History Tobacco Use Types Packs/Day Years Used Date Smoking Tobacco: Some Days Smokeless Tobacco: Never Comments:vAPE - pUFF bAR Alcohol Use Standard Drinks/Week Comments Never 0 (1 standard drink = 0.6 oz pur e alcohol) PHQ-2 Answer Date Recorded PHQ-2 Score 14 04/23/2019 Nutrition Answer Date Recorded Nutrition: EVOO Fat Source 13 07/27 Nutrition: Servings of Fruits/Vegetables per Day Not on file 07/27/2020 Dental Answer Date Recorded Dental: Regular Dentist Unknown 01/14/20 21 Estimated Date of Delivery Comme nts Yes 01/20/2025 Sex and Gender Information Value Date Recorded Sex Assigned at Not on file Legal Sex Female 7:11 AM 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 Gender Identity Not on file Sexual Orientation Not on file Last Filed Vital Signs Vital Sign Reading Time Taken Comments Blood Pressure 103/64 09/04/2024 3:30 PM CDT Pulse 99 09/04/2024 3:30 PM CDT Temperature 36.8 C (98.2 F) 09/04/2024 3:31 PM CDT Respiratory Rate 16 09/04/2024 3:36 PM CDT Oxygen Saturation 100% 09/04/2024 3: 30 PM CDT Inhaled Oxygen Concentration - - Weight 52.6 kg (115 lb 15.4 oz) 08/29/2024 7:25 AM CDT Height 154.9 cm (5' 1) 12/20/2021 3:39 PM 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 Body Mass Index - - Plan of Treatment Health Maintenance Due Date Last Done Comments Chlamydia and Gonorrhea Screening 2005 Depression Monitoring (PHQ-9) 2005 HIV Screening 2005 Hepatitis C Screening 2005 TB Screening during Well Child Visit 2005 Tobacco Cessation counseling 2005 1 week Well Child Check-Up 2005 1 month Well Child Check-Up 2005 2 month Well Child Check-Up 2005 4 month Well Child Check-Up 2005 9 month Well Child Check-Up 2005 15 month Well Child Check-Up 04/24/2006 18 month Well Child Check-Up 07/25/2006 2 year Well Child Check-Up 01/22/2007 30 month Well Child Check-Up 07/25/2007 3 year Well Child Check-Up 01/23/2008 Well Child Check-Up Completed in Past Year 01/23/2008 5 year Well Child Check-Up 01/22/2010 6 year Well Child Check-Up 01/22/2011 7 year Well Child Check-Up 01/23/2012 8 year Well Child Check-Up 01/22/2013 10 year Well Child Check-Up 01/22/2015 12 year Well Child Check-Up 01/22/2017 13 year Well Child Check-Up 01/22/2018 14 year Well Child Check-Up 01/22/2019 Vision Screening during Well Child Visit 2019 15 year Well Child Check-Up 01/23/2020 HPV Vaccines (2 - 3-dose series) 05/12/2021 04/14/2021 17 year Well Child Check-Up 01/22/2022 18 year Well Child Check-Up 01/22/2023 19 year Well Child Check-Up 01/23/2024 Pneumococcal vaccine (0-49 years) (1 of 2 - PCV) 02/23/2024 09/07/2009, 2005, 2005, Additional history exists COVID-19 Vaccine (1 - season) 2024 Influenza Vaccine (#1) 2024 5, 08/16/2015, 08/07/2013, Additional history exists Tdap vaccine - (27-36 weeks) (1 - Tdap) 10/21/2024 04/17/2023, 07/06/2016, 07/11/2010, Additional history exists Depression Monitoring (PHQ-9 for quality tracking) 11/12/2024 20 year Well Child Check-Up 01/22/2025 Well Child Check-Up (WCC) 01/22/2025 DTaP,Tdap,and Td Vaccines (8 - Td or Tdap) 04/17/2033 04/17/2023, 07/06/2016, 07/11/2010, Additional history exists Hepatitis B Vaccines Completed 2005, 2005, 2005 IPV Vaccines Completed 09/07/2009, 11/13, 2005, Additional history exists Varicella Vaccines Completed 11/14/2010, 07/11/2010 Meningococcal Vaccine Aged Out 07/06/2016 No selena pauline eligible based on patient's age to complete this topic Anemia/Iron Deficiency Screening During Well Child Visit (if High Risk Menstruating Female) Completed 02/24/2024, 05/06/2021, 03/12/2021, Additional history exists RSV vaccine - (32-36 weeks) or 60+ years (No Doses Required) Completed Procedures Procedure Name Priority Date/Time Associated Diagnosis Comments CBC WITH DIFFERENTIAL, B STAT 02/24/2024 4:51 PM CDT from Last 3 Months or Most Recently Relevant to Health Maintenance Results * (ABNORMAL) CBC with Differential, Blood (02/24/2024 4:51 PM CDT) Hemoglobin 13.6 11.6 - 15.0 g/dL 02/24/2024 5:01 PM CDT [facility] Hematocrit 41.2 35.5 - 44.9 % 02/24/2024 5:01 PM CDT [facility] Erythrocytes 4.73 3.92 - 5.13 x10(12)/L 02/24/2024 5:01 PM CDT [facility] MCV 87.1 78.2 - 97.9 fL 02/24/2024 5:01 PM CDT [facility] RBC Distrib Width 12.2 12.2 - 16.1 % 02/24/2024 5:01 PM CDT [facility] Platelet Count 377(H) 157 - 371 x10(9)/L 02/24/2024 5:01 PM CDT [facility] Leukocytes 8.1 3.4 - 9.6 x10(9)/L 02/24/2024 5:01 PM CDT STMA Neutrophils 4.06 1.56 - 6.45 x10(9)/L 02/24/2024 5:01 PM CDT [facility] Lymphocytes 2.70 0.95 - 3.07 x10(9)/L 02/24/2024 5:01 PM CDT [facility] Monocytes 0.61 0.26 - 0.81 x10(9)/L 02/24/2024 5:01 PM CDT STMA Eosinophils 0.65(H) 0.03 - 0.48 x10(9)/L 02/24/2024 5:01 PM CDT STMA Basophils 0.06 0.01 - 0.08 x10(9)/L 02/24/2024 5:01 PM CDT STMA Blood (Blood, Venous) 02/24/2024 4:51 PM CDT 02/24/2024 4:58 PM CDT Robb Tang M.D. LAB BLOOD ADD-ON Final Res ult [facility] [address] [place] [address], [place] STMA [facility] [address] [place] [address] DHPM [facility] [address] [place] [address] from Last 3 Months or Most Recently Relevant to Health Maintenance Insurance [facility] [address] [place] [address] [facility] [address] [place] [address] [facility] [address] [address] Advance Directives For more information, please contact: [phone] * Full Code (Latest Code Status on File) Date Activated Date Inactivated Comments 10/18/2018 8:41 PM 10/19/2018 3:40 PM Question Answer Comments Full Code: Not Discussed Due to: Not medically appropriate Care Teams Web Machine Tender Relationship Specialty Start Date End Date Elsewhere, Pcp PCP - General Family Medicine 10/18/18
== END 2025-03-28 15:42 | disposition home or self-care (01) ==
PROVIDERS: Emergency Provider Internal Medicine
DX: O72.1 Other immediate postpartum hemorrhage (principal)
CPT/HCPCS: 36415; 76830; 76856; 80048; 81001; 81003; 84703; 85025; 87086; 87186; 99283